=== PATIENT | female | born 2000 | race American Indian/Alaskan Native ===

== ENCOUNTER 2020-10-31 12:35 | Observation (INO) | payer OTHER ==
[~2020-10-31] VITALS: Ht 154.9 cm; Wt 86.4 kg
[2020-10-31] VITALS (8 sets, daily range): BP systolic 111–124; BP diastolic 54–79; PULSE 104–108; TEMP 98.1–99.1
[2020-10-31 13:16] LABS: COLLECTION METHOD CLEAN CATCH
[2020-10-31 13:21] LABS: MUCOUS Present /lpf; PH 5 (5-8); URINE APPEARANCE Clear; URINE BACTERIA None Seen /hpf; URINE BILIRUBIN Positive (NEGATIVE); URINE BLOOD Negative (NEGATIVE); URINE COLOR Yellow; URINE GLUCOSE Negative (NEGATIVE); URINE KETONE Negative (NEGATIVE); URINE LEUKOCYTE ESTERASE Negative (NEGATIVE); URINE NITRATE Negative (NEGATIVE); URINE PROTEIN(semi-quant) Negative (NEGATIVE); URINE RBC 0-2 /hpf; URINE UROBILINOGEN Negative (NEGATIVE)
[2020-10-31 13:54] LABS: BASO % 0.2 % (0.0-2.0); EOS # 0.1 (0.0-0.7); EOS % 0.4 % (0-4.0); GRAN # 18.9 (1.4-6.5); GRAN % 88.9 % (42.2-75.2); HEMATOCRIT 37.1 % (35.0-45.0); HEMOGLOBIN 11.4 g/dl (12.0-15.0); LYMPH # 1.6 (1.2-3.4); LYMPH % 7.5 % (20.0-51.0); MEAN CELL VOLUME 62 fl (80.0-95.0); MEAN CORPUSCULAR HEMOGLOBIN 19 pg (26.0-32.0); MEAN CORPUSCULAR HGB CONC 31 g/dl (33.0-37.0); MEAN PLATELET VOLUME 10.3 fl (7.4-10.4); MONO # 0.5 (0.1-0.6); MONO % 2.5 % (1.7-9.3); PLATELET COUNT 371 K/mm3 (130-400); RED BLOOD COUNT 6.03 M/mm3 (4.10-5.30); REDCELL DISTRIBUTION WIDTH-CV 17.3 % (11.5-14.5)
[2020-10-31 14:03] LABS: BILIRUBIN,TOTAL 0.8 mg/dL (0.0-1.0); CALCIUM 8.7 mg/dL (8.4-10.2); CREATININE, serum 0.55 (0.52-1.25); POTASSIUM 3.7 mmol/L (3.4-5.0); TOTAL PROTEIN 7.2 gm/dL (6.4-8.2)
--- NOTE | 2020-10-31 17:08 | NUR ---
Received report from CHERELLE Coleman on patient. Patient is A&Ox4. She is 23 years old. She has urinated and had a BM this morning. She no allergies. She has been NPO since yesterday at 1700. She has an IV to her Rt. AC that is 20 G. She was given Morphine for abdominal pain at 2:30 PM and Zofran 4mg and has had 1 LITER NS. WBC count was elevated and patient will be going into surgery for an Lap with possible open per CHERELLE Coleman. Awaiting report from PACU.
[2020-10-31] MEDS ORDERED: PERCOCET 325 MG1 TA2 PO (19:38)
[2020-10-31] MEDS ORDERED: MOTRIN 600600 MG/TAB PO (19:38)
--- NOTE | 2020-10-31 20:03 | NUR ---
Reported off to night nurse.
--- NOTE | 2020-10-31 20:10 | NUR ---
PATIENT TO ROOM 342 VIA HOSP BED/BY PACU NURSE. IVF INFUSING PER GRAVITY. PATIENT DENIES ANY NEEDS AT THIS TIME. SCD ON PER ORDER.
--- NOTE | 2020-10-31 21:33 | NUR ---
UP TO BATHROOM WITH ASSTX1 TO VOID WITH NO PROBLEMS. DENIES NAUSEA. TOLERATING WATER OK, ATTEMPTING TO EAT APPLESAUCE.
--- NOTE | 2020-10-31 22:05 | NUR ---
PATIENT REPORTS 9/10 LEFT ABD PAIN, SEE eMAR FOR MED GIVEN. DENIES NAUSEA AT THIS TIME AFTER EATING APPLESAUCE AND FEW BITES OF GRANOLA BAR.
--- NOTE | 2020-10-31 22:41 | NUR ---
PATIENT REPORTS PAIN RELIEVED WITH IBUPROFEN. DENIES NAUSEA, PATIENT WANTING TO GO HOME.
--- NOTE | 2020-10-31 22:53 | NUR ---
INFORMED OF PATIENT CURRENT POST OP STATUS, THAT PATIENT IS WANTING TO GO HOME. PROVIDER RECOMMENDED PATIENT TO GET HOME PACK OF RX MEDS FOR NOW. SEE [employer] FOR ORDERS ENTERED BY PROVIDER.
--- NOTE | 2020-10-31 23:25 | NUR ---
CRITERIA FOR DISCHARGE MET, TOLERATING PO INTAKE, PAIN RELIEF WITH IBUPROFEN, AMBULATES WITH NO PROBLEMS UNASSISTED. VOIDED X1 WITH NO PROBLEMS.
--- NOTE | 2020-10-31 23:27 | NUR ---
PATIENT DISMISSED PER WHEEL CHAIR, ACCOMPANIED BY UNIT PCT.
== END 2020-10-31 23:27 | disposition home or self-care (01) ==
LOC: COL.ER 12:35 → SURG 16:13
PROVIDERS: Physician Assistant; ADMIT Surgery
DX: K35.80 Unspecified acute appendicitis (principal)
CPT/HCPCS: G0378; J0330; J1100; J1170; J1885; J2270; J2405; J2543; J2704; J3010; J7030; J7120; Q9967